=== PATIENT | male | born 1945 | race Caucasian/White ===

== ENCOUNTER 2017-01-06 05:53 | Day surgery (SDC) | payer OTHER | END 2017-01-06 13:49 | disposition home or self-care (01) | LOC: SDC 05:53 | DX: H26.492 Other secondary cataract, left eye (principal); Z88.2 Allergy status to sulfonamides; K21.9 Gastro-esophageal reflux disease without esophagitis; I10 Essential (primary) hypertension; H54.41 Blindness, right eye, normal vision left eye; Z79.899 Other long term (current) drug therapy; F17.210 Nicotine dependence, cigarettes, uncomplicated; J44.9 Chronic obstructive pulmonary disease, unspecified ==

== ENCOUNTER → 2017-02-24 14:40 | Emergency (ER) | payer OTHER | END | disposition admitted as inpatient to this hospital (09) | LOC: ER 14:40 | DX: I12.9 Hypertensive chronic kidney disease with stage 1 through stage 4 chronic kidney disease, or unspecified chronic kidney disease (principal); N18.9 Chronic kidney disease, unspecified; R63.4 Abnormal weight loss; E78.5 Hyperlipidemia, unspecified; F17.210 Nicotine dependence, cigarettes, uncomplicated; Z79.899 Other long term (current) drug therapy | CPT/HCPCS: 36415 ==

== ENCOUNTER 2017-02-24 14:41 | Inpatient (IN) | payer OTHER ==
[~2017-02-24] VITALS: Ht 172.7 cm; Wt 58.1 kg
--- NOTE | 2017-02-25 03:09 | NUR ---
CALLED SON, LADONNA MALHOTRA AT 0309 TO ADVISE THAT MR. MALHOTRA WAS NOW IN ICU.
--- NOTE | 2017-02-25 13:29 | NUR ---
1030-PT SITTING ON EDGE OF BED. FAMILY AT BS. PT GETTING AGITATED. WANTS TO PUT PANTS ON AND GO HOME. MD NOTIFIED OF AGITATION. N/O'S NOTED. 1125-SEROQUEL 12.5MG PO GIVEN AT THIS TIME. TALKED TO PT REGARDING HIS CONDITION AND THE NEED TO STAY IN HOSPITAL TO IMPROVE BEFORE GOING HOME. PT AGREES. 1300-PT SLEEPING AT THIS TIME. NAD.
--- NOTE | 2017-02-25 13:36 | NUR ---
0820- HERE TO SEE AND ASSESS PT AT THIS TIME. UPDATED ON PT CONDITION. PT REMAINS HYPOTENSION. LABS REMAIN ABNORMAL BUT IMPROVING. N/O'S NOTED.
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
--- NOTE | 2017-02-25 18:30 | NUR ---
1814-MD AND NURSE HAS DISCUSSED POSSIBILITY OF SEPSIS THIS SHIFT. RN CONTACTED MD FOR LACTIC ACID AT THIS TIME. N/O'S NOTED
--- NOTE | 2017-02-28 00:13 | NUR ---
02/27/2017 2350 RECEIVED PT FROM MED/SURG FOR C/OS DELIRIUM. PT DROWSY, FOLLOWS COMMANDS, ORIENTED TO PERSON ONLY. PLACED IN DIRECT VIEW OF NURSING STATION. SIDE RAILS UP X 3, BED IN LOWEST POSITION WITH BED EXIT ARMED.
--- NOTE | 2017-02-28 01:11 | NUR ---
0043 02/28/2017 PT AGITATED AND RESTLESS. ATTEMPTING TO CLIMB OUT OF BED AND PULLING AT ALL LINES: MARTINEZ CATHETER, IV AND TELEMETRY. NOTIFIED DR. LANDIN AND ORDERS RECEIVED.
--- NOTE | 2017-02-28 02:08 | NUR ---
0200 02/28/2017 PT SLEEPING INTERMITTENTLY, MUCH MORE CALM WHEN AWAKENS. CONFUSED SPEECH AND UNABLE TO REORIENT TO HOSPITAL ENVIRONNENT.
--- NOTE | 2017-03-01 13:07 | NUR ---
1000-MD HERE TO SEE AND ASSESS PT AT THIS TIME. UPDATED ON CONDITION WELL MAGNESIUM 1.5 THIS AM. PT CONTIUES WITH EPISODES OF MILD CONFUSION THIS AM. EASILY REDIRECTED. N/O'S NOTED 1100-PT HAS BEEN TAKEN FOR MRI OF BRAIN NAD
--- NOTE | 2017-03-01 14:36 | NUR ---
1420-REPORT GIVEN TO Jossy GIRON RN ON [facility] [employer]. PT TO BE TRANSFERRED TO ROOM 304
--- NOTE | 2017-03-01 15:13 | NUR ---
1420 REPORT RECEIVED FROM [facility] ICU FOR PATIENT TO TRANSFER TO ROOM 305. 1449 PATIENT TRANSFERRED TO FLOOR VIA HOSPITAL BED. PATIENT ALERT AND ORIENTED X 3. PATIENT NOT ON O2. PATIENT LAYING IN BED WITH EYES OPEN AND DENIES PAIN AT THIS TIME.
== END 2017-03-03 17:15 | disposition home or self-care (01) | DRG 683 ==
LOC: ER 14:41 → MED 17:58 → ICU 17:58 → MED 02-27 16:57 → ICU 02-27 23:50 → MED 03-01 14:48
PROVIDERS: ADMIT Internal Medicine
DX: N17.9 Acute kidney failure, unspecified (principal); E87.1 Hypo-osmolality and hyponatremia; N39.0 Urinary tract infection, site not specified; F10.239 Alcohol dependence with withdrawal, unspecified; I95.9 Hypotension, unspecified; E87.6 Hypokalemia; E83.42 Hypomagnesemia; N40.0 Benign prostatic hyperplasia without lower urinary tract symptoms; F41.9 Anxiety disorder, unspecified; F32.9 Major depressive disorder, single episode, unspecified; K21.9 Gastro-esophageal reflux disease without esophagitis; E78.5 Hyperlipidemia, unspecified; I10 Essential (primary) hypertension; Z79.899 Other long term (current) drug therapy; F17.210 Nicotine dependence, cigarettes, uncomplicated; R97.20 Elevated prostate specific antigen [PSA]; I73.9 Peripheral vascular disease, unspecified; I71.4 Abdominal aortic aneurysm, without rupture; R63.4 Abnormal weight loss; Z68.20 Body mass index [BMI] 20.0-20.9, adult; R19.5 Other fecal abnormalities; I65.29 Occlusion and stenosis of unspecified carotid artery
CPT/HCPCS: 36415; 70551; 80307; 84153; 92610; 97162-GP; 97166; G0480; J0696; J1644; J1650; J2060; J3370; J7040; J7050

== ENCOUNTER 2017-03-03 21:50 | Emergency (ER) | payer OTHER | END 2017-03-04 01:10 | disposition home or self-care (01) | LOC: ER 21:50 | DX: R11.0 Nausea (principal); E83.42 Hypomagnesemia; R42 Dizziness and giddiness; I10 Essential (primary) hypertension; F17.210 Nicotine dependence, cigarettes, uncomplicated; Z79.899 Other long term (current) drug therapy; Z88.1 Allergy status to other antibiotic agents | CPT/HCPCS: 36415; 80307; 96361; 96374; G0480 ==

== ENCOUNTER 2017-03-21 11:25 | Observation (INO) | payer OTHER ==
[~2017-03-21] VITALS: Ht 172.7 cm; Wt 60.4 kg
== END 2017-03-22 10:51 | disposition home or self-care (01) ==
LOC: ER 11:25 → MED 14:47
PROVIDERS: ADMIT Internal Medicine
DX: E83.42 Hypomagnesemia (principal); E87.6 Hypokalemia; I67.9 Cerebrovascular disease, unspecified; I10 Essential (primary) hypertension; N40.0 Benign prostatic hyperplasia without lower urinary tract symptoms; F32.9 Major depressive disorder, single episode, unspecified; F41.9 Anxiety disorder, unspecified; F17.210 Nicotine dependence, cigarettes, uncomplicated; Z79.82 Long term (current) use of aspirin; Z79.899 Other long term (current) drug therapy
CPT/HCPCS: 36415; 96365; 96366; 96372; 97161-GP; G0378; J1650